=== PATIENT | male | born 2000 | race Caucasian/White ===

== ENCOUNTER 2021-09-18 20:24 | Emergency (ER) | payer OTHER ==
[~2021-09-18] VITALS: Ht 175.3 cm; Wt 81.8 kg
[~2021-09-18 20:24] MED LIST: NO HOME MEDICATIONS
[2021-09-18 20:30] VITALS: TEMP 98
[2021-09-18 20:59] VITALS: BP 136/65
[2021-09-18] MEDS ORDERED: NAPROSYN500 MG PO (21:06)
[2021-09-18] MEDS ORDERED: CRUTCHES MC (21:19)
[2021-09-18 21:32] VITALS: PULSE 89
== END 2021-09-18 21:28 | disposition home or self-care (01) ==
LOC: COL.ER 20:24
DX: S99.912A Unspecified injury of left ankle, initial encounter (principal); W55.22XA Struck by cow, initial encounter

== ENCOUNTER 2023-10-27 21:30 | Emergency (ER) | payer OTHER ==
[~2023-10-27] VITALS: Ht 180.3 cm; Wt 79.5 kg
[~2023-10-27 21:30] MED LIST changes: +CRUTCHES MC; +NAPROSYN500 MG PO
[2023-10-27] MEDS ORDERED: Ketorolac 60 MG/2 ML VIAL IM ONE (22:15)
[2023-10-27] MEDS ORDERED: FLEXERIL 1010 MG/TAB PO (22:44)
[2023-10-27 23:00] VITALS: BP 125/72; PULSE 58
== END 2023-10-27 23:00 | disposition home or self-care (01) ==
LOC: COL.ER 21:30
DX: S39.012A Strain of muscle, fascia and tendon of lower back, initial encounter (principal); X50.0XXA Overexertion from strenuous movement or load, initial encounter; Y92.812 Truck as the place of occurrence of the external cause
CPT/HCPCS: J1885; J2360

== ENCOUNTER 2024-03-20 00:07 | Emergency (ER) | payer OTHER ==
[~2024-03-20] VITALS: Ht 180.3 cm; Wt 81.8 kg
[~2024-03-20 00:07] MED LIST changes: +FLEXERIL 1010 MG/TAB PO
[2024-03-20 00:11] VITALS: TEMP 98.4
[2024-03-20] MEDS ORDERED: Ibuprofen 400 MG TAB PO ONE (00:30)
[2024-03-20] MEDS ORDERED: Acetaminophen 325 MG TAB PO ONE (00:30)
[2024-03-20 01:00] VITALS: BP 141/63; PULSE 60
== END 2024-03-20 01:00 | disposition home or self-care (01) ==
LOC: COL.ER 00:07
DX: S93.401A Sprain of unspecified ligament of right ankle, initial encounter (principal); X50.1XXA Overexertion from prolonged static or awkward postures, initial encounter; Y93.I9 Activity, other involving external motion